=== PATIENT | female | born 1940 | race Caucasian/White ===

== ENCOUNTER 2017-05-14 20:40 | Emergency (ER) | payer MEDICARE ==
[~2017-05-14] VITALS: Ht 149.9 cm; Wt 72.0 kg
[~2017-05-14 20:40] MED LIST: ASPI-1182 PO; METO25 PO; NITR.3 SL; SIMV-260 PO; VITAD5000 PO
[2017-05-14] MEDS ORDERED: AMLO-511 PO (21:01)
[2017-05-14] MEDS ORDERED: ASPI81 PO (21:01)
[2017-05-14 21:29] LABS: APPEARANCE,URINE CLEAR (CLEAR); GLUCOSE, URINE (UA) NEGATIVE (NEGATIVE); KETONES,URINE NEGATIVE (NEGATIVE); LEUKOCYTE ESTERASE ,URINE NEGATIVE (NEGATIVE); OCCULT BLOOD,URINE TRACE (NEGATIVE); PROTEIN,URINE NEGATIVE (NEGATIVE)
[2017-05-14 21:31] LABS: ADD UA MICROSCOPIC YES
[2017-05-14 21:59] LABS: ANION GAP 5 mmol/L (8-16); CALCIUM, TOTAL 9.3 mg/dL (8.8-10.5); CARBON DIOXIDE 29 mmol/L (22-29); CHLORIDE 106 mmol/L (98-107); CREATININE 0.75 mg/dL (0.60-1.30); GLOMERULAR FILTR. RATE CALC > 60 mL/min (>60); POTASSIUM 4.1 mmol/L (3.5-5.1); SODIUM SERUM 140 mmol/L (136-145); UREA NITROGEN, BLOOD 19 mg/dL (7-18)
[2017-05-14 22:00] LABS: BASOPHILS # (AUTO) 0.03 K/uL (0.00-0.20); BASOPHILS % (AUTO) 0.5 % (0.0-2.0); EOSINOPHILS # (AUTO) 0.06 K/uL (0.00-0.70); EOSINOPHILS % (AUTO) 1.15 % (1.0-6.0); HEMATOCRIT 38.6 % (36-46); HEMOGLOBIN 13.1 g/dL (12.0-16.0); LYMPHOCYTES # (AUTO) 1.9 K/uL (1.0-4.8); LYMPHOCYTES % (AUTO) 34.7 % (22.0-44.0); MEAN CORPUSCULAR HEMOGLOBIN 30.5 pg (26.0-34.0); MEAN CORPUSCULAR VOLUME 90 fL (80-100); MONOCYTES # (AUTO) 0.6 K/uL (0.1-1.0); MONOCYTES % (AUTO) 10.9 % (2.0-9.0); NEUTROPHILS % (AUTO) 52.7 % (40.0-70.0); PLATELET COUNT (AUTO) 211 K/uL (150-450); RED BLOOD CELL COUNT(AUTO) 4.31 MIL/uL (4.00-5.20); RED CELL DISTRIBUTION WIDTH 13.9 % (11.5-14.5); WHITE BLOOD COUNT (AUTO) 5.6 K/uL (4.5-11.0)
[2017-05-14 22:05] LABS: ALANINE AMINOTRANSFERASE 49 U/L (12-78); ALBUMIN 3.5 g/dL (3.4-5.0); ASPARTATE AMINOTRANSFERASE 36 U/L (15-37); BILIRUBIN,TOTAL 0.4 mg/dL (0.1-1.0); TOTAL PROTEIN, SERUM 7.3 g/dL (6.4-8.2)
[2017-05-14 22:17] LABS: SQUAMOUS EPITHELIAL CELL,UR Few /LPF (None Seen)
[2017-05-14 22:19] LABS: WBC,URINE 0-2 /HPF (0-5)
[2017-05-14 23:57] VITALS: BP 127/82
== END 2017-05-15 00:16 | disposition home or self-care (01) ==
LOC: EMS 20:43
DX: R10.12 Left upper quadrant pain (principal); E66.9 Obesity, unspecified; I10 Essential (primary) hypertension; Z68.32 Body mass index [BMI] 32.0-32.9, adult; Z79.82 Long term (current) use of aspirin
CPT/HCPCS: 74176; 99285

== ENCOUNTER 2017-08-11 10:05 | Emergency (ER) | payer MEDICARE ==
[~2017-08-11] VITALS: Ht 157.5 cm; Wt 78.6 kg
[~2017-08-11 10:05] MED LIST changes: +AMLO-511 PO; +ASPI81 PO
[2017-08-11] MEDS ORDERED: ATEN25TA PO (10:30)
[2017-08-11] MEDS ORDERED: SIMV-260 PO (10:30)
[2017-08-11] MEDS ORDERED: ONDANSETRON HCL 4 MG/2 ML VIAL IVP ONE (11:00)
[2017-08-11] MEDS ORDERED: SODIUM CHLORIDE 0.9% 1,000 ML IV ONE (11:00)
[2017-08-11 11:03] LABS: EOSINOPHILS % (AUTO) 0.1 % (1.0-6.0); HEMATOCRIT 42.8 % (36-46); HEMOGLOBIN 14.3 g/dL (12.0-16.0); LYMPHOCYTES # (AUTO) 0.8 K/uL (1.0-4.8); LYMPHOCYTES % (AUTO) 7.1 % (22.0-44.0); MEAN CORPUSCULAR HEMOGLOBIN 30.3 pg (26.0-34.0); MEAN CORPUSCULAR HGB CONC 33.5 G/dL (31.0-37.0); MEAN CORPUSCULAR VOLUME 90 fL (80-100); MONOCYTES # (AUTO) 0.4 K/uL (0.1-1.0); MONOCYTES % (AUTO) 3.8 % (2.0-9.0); NEUTROPHILS # (AUTO) 10.3 K/uL (1.8-7.7); PLATELET COUNT (AUTO) 220 K/uL (150-450); RED BLOOD CELL COUNT(AUTO) 4.74 MIL/uL (4.00-5.20); RED CELL DISTRIBUTION WIDTH 13.6 % (11.5-14.5); WHITE BLOOD COUNT (AUTO) 11.6 K/uL (4.5-11.0)
[2017-08-11 11:14] LABS: ANION GAP 3 mmol/L (8-16); CARBON DIOXIDE 29 mmol/L (22-29); CHLORIDE 103 mmol/L (98-107); GLOMERULAR FILTR. RATE CALC > 60 mL/min (>60); POTASSIUM 3.8 mmol/L (3.5-5.1); SODIUM SERUM 135 mmol/L (136-145); UREA NITROGEN, BLOOD 17 mg/dL (7-18)
[2017-08-11 11:20] LABS: ALANINE AMINOTRANSFERASE 36 U/L (12-78); ALBUMIN 3.6 g/dL (3.4-5.0); ASPARTATE AMINOTRANSFERASE 23 U/L (15-37); BILIRUBIN,TOTAL 0.6 mg/dL (0.1-1.0); TOTAL PROTEIN, SERUM 7.5 g/dL (6.4-8.2)
[2017-08-11] MEDS ORDERED: KETOROLAC TROMETHAMINE 30 MG/ML VIAL IVP ONE (11:45)
[2017-08-11 12:00] LABS: INFLUENZA TYPE B NEGATIVE FOR TYPE B (NEGATIVE)
[2017-08-11] MEDS ORDERED: MAG HYDROX/AL HYDROX/SIMETH ES 30 ML SUSPENSION UDCUP PO ONE (12:45)
[2017-08-11 12:54] LABS: APPEARANCE,URINE CLEAR (CLEAR); GLUCOSE, URINE (UA) NEGATIVE (NEGATIVE); KETONES,URINE NEGATIVE (NEGATIVE); LEUKOCYTE ESTERASE ,URINE NEGATIVE (NEGATIVE); OCCULT BLOOD,URINE TRACE (NEGATIVE); PH,URINE 6.5 (5.0-8.0); PROTEIN,URINE NEGATIVE (NEGATIVE)
[2017-08-11 13:31] LABS: RBC,URINE 0-2 /HPF (0-2); WBC,URINE None Seen /HPF (0-5)
[2017-08-11 13:37] VITALS: BP 137/60
== END 2017-08-11 14:21 | disposition home or self-care (01) ==
LOC: EMS 10:08
DX: R11.2 Nausea with vomiting, unspecified (principal); R19.7 Diarrhea, unspecified; I10 Essential (primary) hypertension
CPT/HCPCS: 36415; 76705; 80053; 81001; 85025; 87804; 96374; 96375; 99285; J1885; J2405; J7030

== ENCOUNTER 2018-11-07 20:08 | Emergency (ER) | payer MEDICARE ==
[~2018-11-07] VITALS: Ht 154.9 cm; Wt 77.7 kg
[~2018-11-07 20:08] MED LIST changes: -ASPI81 PO; +ATEN25TA PO; -METO25 PO; -VITAD5000 PO
[2018-11-07] MEDS ORDERED: ATEN25TA PO (20:40)
[2018-11-07] MEDS ORDERED: ISOS30TA6 PO (20:40)
[2018-11-07] MEDS ORDERED: LOSA25TA41 PO (20:40)
[2018-11-07] MEDS ORDERED: ALLO100T PO (20:40)
[2018-11-07] MEDS ORDERED: VITAD1000 PO (20:40)
[2018-11-07] MEDS ORDERED: NITR.4 SL (20:40)
[2018-11-07] MEDS ORDERED: ATOR40TA28 PO (20:40)
[2018-11-07 21:33] LABS: BASOPHILS % (AUTO) 0.7 % (0.0-2.0); EOSINOPHILS % (AUTO) 0.9 % (1.0-6.0); HEMATOCRIT 39.6 % (36-46); HEMOGLOBIN 13.2 g/dL (12.0-16.0); LYMPHOCYTES # (AUTO) 1.7 K/uL (1.0-4.8); LYMPHOCYTES % (AUTO) 28.9 % (22.0-44.0); MEAN CORPUSCULAR HEMOGLOBIN 29.5 pg (26.0-34.0); MEAN CORPUSCULAR HGB CONC 33.4 G/dL (31.0-37.0); MEAN CORPUSCULAR VOLUME 88 fL (80-100); MONOCYTES # (AUTO) 0.6 K/uL (0.1-1.0); MONOCYTES % (AUTO) 11.2 % (2.0-9.0); NEUTROPHILS # (AUTO) 3.3 K/uL (1.8-7.7); NEUTROPHILS % (AUTO) 58.3 % (40.0-70.0); PLATELET COUNT (AUTO) 248 K/uL (150-450); RED BLOOD CELL COUNT(AUTO) 4.48 MIL/uL (4.00-5.20); RED CELL DISTRIBUTION WIDTH 13.4 % (11.5-14.5)
[2018-11-07 21:43] LABS: CALCIUM, TOTAL 9.5 mg/dL (8.8-10.5); CREATININE 1.02 mg/dL (0.60-1.30)
[2018-11-07] MEDS ORDERED: SODIUM CHLORIDE 0.9% 1,000 ML IV ONE (21:45)
[2018-11-07 21:49] LABS: ALBUMIN 2.9 g/dL (3.4-5.0); BILIRUBIN,TOTAL 0.4 mg/dL (0.1-1.0); TOTAL PROTEIN, SERUM 7.2 g/dL (6.4-8.2)
[2018-11-07 21:51] LABS: LACTIC ACID 0.8 mmol/L (0.4-2.0)
[2018-11-07 22:42] LABS: INFLUENZA TYPE A POSITIVE FOR TYPE A (NEGATIVE); INFLUENZA TYPE B NEGATIVE FOR TYPE B (NEGATIVE)
[2018-11-07] MEDS ORDERED: OSELTAMIVIR PHOSPHATE 75 MG CAPSULE PO ONE (23:00)
[2018-11-07 23:40] LABS: APPEARANCE,URINE TURBID (CLEAR); BILIRUBIN,URINE NEGATIVE (NEGATIVE); GLUCOSE, URINE (UA) NEGATIVE (NEGATIVE); KETONES,URINE NEGATIVE (NEGATIVE); LEUKOCYTE ESTERASE ,URINE LARGE (NEGATIVE); NITRATE,URINE POSITIVE (NEGATIVE); OCCULT BLOOD,URINE SMALL (NEGATIVE); PH,URINE 5.5 (5.0-8.0); PROTEIN,URINE NEGATIVE (NEGATIVE); UROBILINOGEN,URINE 0.2 mg/dL (<=1.0)
[2018-11-07 23:46] LABS: RBC,URINE 0-2 /HPF (0-2); WBC,URINE >100 /HPF (0-5)
[2018-11-07 23:47] LABS: BACTERIA,URINE Moderate /HPF (None Seen); SQUAMOUS EPITHELIAL CELL,UR Rare /LPF (None Seen)
[2018-11-08] MEDS ORDERED: CefTRIAXone 1 GM/DEXTROSE 50 ML IV ONE
[2018-11-08 00:02] VITALS: BP 115/68
== END 2018-11-08 00:10 | disposition home or self-care (01) ==
LOC: EMS 20:09
DX: J10.1 Influenza due to other identified influenza virus with other respiratory manifestations (principal); N39.0 Urinary tract infection, site not specified; I25.10 Atherosclerotic heart disease of native coronary artery without angina pectoris; I11.9 Hypertensive heart disease without heart failure; E78.00 Pure hypercholesterolemia, unspecified; Z79.899 Other long term (current) drug therapy; Z79.01 Long term (current) use of anticoagulants
CPT/HCPCS: 36415; 71045; 80053; 81001; 82550; 83605; 83880; 84484; 85025; 85610; 85730; 87040; 87077; 87086; 87804; 93005; 96365; 99285; J0696; J7030

== ENCOUNTER 2019-06-22 14:01 | Inpatient (IN) | payer MEDICARE ==
[~2019-06-22] VITALS: Ht 160 cm; Wt 76.9 kg
[~2019-06-22 14:01] MED LIST changes: +ALLO100T PO; -AMLO-511 PO; +ATOR40TA28 PO; +CHOL100018 PO; +ISOS30TA6 PO; +LOSA25TA41 PO; -NITR.3 SL; +NITR0.4T52 SL; -SIMV-260 PO
[2019-06-22] MEDS ORDERED: METF-960 PO (14:19)
[2019-06-22] MEDS ORDERED: METH500T7 PO (14:19)
[2019-06-22] MEDS ORDERED: LEVO25TA9 PO (14:19)
[2019-06-22] MEDS ORDERED: SODIUM CHLORIDE 0.9% 1,000 ML IV ONE ×2 (14:30→17:15)
[2019-06-22 14:46] LABS: BASOPHILS % (AUTO) 0.2 % (0.0-2.0); EOSINOPHILS % (AUTO) 0.2 % (1.0-6.0); HEMATOCRIT 40.1 % (36-46); HEMOGLOBIN 13.2 g/dL (12.0-16.0); LYMPHOCYTES # (AUTO) 3.2 K/uL (1.0-4.8); LYMPHOCYTES % (AUTO) 25.9 % (22.0-44.0); MEAN CORPUSCULAR HEMOGLOBIN 30.4 pg (26.0-34.0); MEAN CORPUSCULAR HGB CONC 32.9 G/dL (31.0-37.0); MEAN CORPUSCULAR VOLUME 92 fL (80-100); MONOCYTES # (AUTO) 0.8 K/uL (0.1-1.0); MONOCYTES % (AUTO) 6.4 % (2.0-9.0); NEUTROPHILS # (AUTO) 8.4 K/uL (1.8-7.7); NEUTROPHILS % (AUTO) 67.3 % (40.0-70.0); PLATELET COUNT (AUTO) 303 K/uL (150-450); RED BLOOD CELL COUNT(AUTO) 4.34 MIL/uL (4.00-5.20); RED CELL DISTRIBUTION WIDTH 14.1 % (11.5-14.5)
[2019-06-22 14:59] LABS: GLUCOSE,POINT OF CARE 134 MG/DL (70-110)
[2019-06-22 15:09] LABS: CALCIUM, TOTAL 9.3 mg/dL (8.8-10.5); CREATININE 1.08 mg/dL (0.60-1.30); POTASSIUM 4.4 mmol/L (3.5-5.1)
[2019-06-22 15:15] LABS: ALBUMIN 2.9 g/dL (3.4-5.0); BILIRUBIN,TOTAL 0.4 mg/dL (0.1-1.0); TOTAL PROTEIN, SERUM 6.7 g/dL (6.4-8.2)
[2019-06-22] MEDS ORDERED: SODIUM CHLORIDE 0.9% 100 ML ONE (15:34)
[2019-06-22] MEDS ORDERED: IOVERSOL 350 MG/ML 150 ML VIAL ONE (15:34)
[2019-06-22] MEDS ORDERED: MAGNESIUM HYDROXIDE SUSPENSION 30 ML UDCUP PO PRN (17:15)
[2019-06-22] MEDS ORDERED: DEXTROSE 50%-WATER 25 GM/50 ML SYRINGE IVP PRN (17:15)
[2019-06-22] MEDS ORDERED: INSULIN LISPRO 100 UNITS/ML SQ PRN (17:15)
[2019-06-22] MEDS ORDERED: ACETAMINOPHEN 325 MG TABLET PO PRN (17:15)
[2019-06-22] MEDS: DOCUSATE SODIUM 100 MG CAPSULE PO SCH ×2 (21:00→21:27)
[2019-06-22] MEDS: DiphenhydrAMINE HCL 50 MG/ML VIAL IVP PRN (22:24)
[2019-06-22 22:30] VITALS: BP 115/50
[2019-06-22] MEDS: HEPARIN SODIUM,PORCINE 5,000 UNITS/ML VIAL SQ SCH (23:43)
[2019-06-23 04:54] VITALS: BP 139/63
[2019-06-23 06:08] LABS: BASOPHILS % (AUTO) 0.5 % (0.0-2.0); EOSINOPHILS % (AUTO) 0.6 % (1.0-6.0); HEMATOCRIT 39.1 % (36-46); LYMPHOCYTES # (AUTO) 1.8 K/uL (1.0-4.8); LYMPHOCYTES % (AUTO) 27.2 % (22.0-44.0); MEAN CORPUSCULAR HEMOGLOBIN 30.6 pg (26.0-34.0); MEAN CORPUSCULAR HGB CONC 33.3 G/dL (31.0-37.0); MEAN CORPUSCULAR VOLUME 92 fL (80-100); MONOCYTES # (AUTO) 0.5 K/uL (0.1-1.0); MONOCYTES % (AUTO) 6.7 % (2.0-9.0); NEUTROPHILS # (AUTO) 4.4 K/uL (1.8-7.7); PLATELET COUNT (AUTO) 257 K/uL (150-450); RED BLOOD CELL COUNT(AUTO) 4.26 MIL/uL (4.00-5.20); RED CELL DISTRIBUTION WIDTH 13.8 % (11.5-14.5)
[2019-06-23] MEDS: DiphenhydrAMINE HCL 50 MG/ML VIAL IVP PRN (06:38)
[2019-06-23 07:38] LABS: GLUCOMETER DEV NAME(LOC) 5S.1; GLUCOSE,POINT OF CARE 101 MG/DL (70-110)
[2019-06-23 07:44] VITALS: BP 122/58
[2019-06-23] MEDS: FAMOTIDINE 20 MG TABLET PO SCH (08:38)
[2019-06-23] MEDS: DOCUSATE SODIUM 100 MG CAPSULE PO SCH ×2 (08:38→20:58)
[2019-06-23] MEDS: HEPARIN SODIUM,PORCINE 5,000 UNITS/ML VIAL SQ SCH ×2 (08:38→15:46)
[2019-06-23] MEDS: MethylPREDNISolone SOD SUCC 125 MG/2 ML VIAL IVP SCH ×2 (08:38→15:46)
[2019-06-23 11:15] VITALS: BP 101/47
[2019-06-23 15:24] VITALS: BP 115/60
[2019-06-23 20:08] VITALS: BP 137/65
[2019-06-24] MEDS: MethylPREDNISolone SOD SUCC 125 MG/2 ML VIAL IVP SCH ×2 (00:01→08:58)
[2019-06-24] MEDS: HEPARIN SODIUM,PORCINE 5,000 UNITS/ML VIAL SQ SCH ×2 (00:01→08:59)
[2019-06-24 00:05] VITALS: BP 131/60
[2019-06-24 04:10] VITALS: BP 143/75
[2019-06-24 07:08] VITALS: BP 124/54
[2019-06-24] MEDS: DOCUSATE SODIUM 100 MG CAPSULE PO SCH (08:57)
[2019-06-24] MEDS: FAMOTIDINE 20 MG TABLET PO SCH (08:59)
[2019-06-24 11:05] VITALS: BP 117/68
[2019-06-24 13:38] LABS: GLUCOMETER DEV NAME(LOC) 5N.2; GLUCOSE,POINT OF CARE 159 MG/DL (70-110)
[2019-06-24 13:48] LABS: GLUCOMETER DEV NAME(LOC) 5N.2; GLUCOSE,POINT OF CARE 209 MG/DL (70-110)
[2019-06-24 19:39] LABS: GLUCOMETER DEV NAME(LOC) 5S.1; GLUCOSE,POINT OF CARE 220 MG/DL (70-110)
[2019-06-24 19:39] LABS: GLUCOMETER DEV NAME(LOC) 5S.1; GLUCOSE,POINT OF CARE 162 MG/DL (70-110)
== END 2019-06-24 12:00 | disposition home or self-care (01) | DRG 918 ==
LOC: EMS 14:02 → 5N 18:46
PROVIDERS: ADMIT Internal Medicine; ATTEND Internal Medicine
DX: T50.991A Poisoning by other drugs, medicaments and biological substances, accidental (unintentional), initial encounter (principal); E11.9 Type 2 diabetes mellitus without complications; I95.2 Hypotension due to drugs; I25.10 Atherosclerotic heart disease of native coronary artery without angina pectoris; E66.9 Obesity, unspecified; L50.9 Urticaria, unspecified; R21 Rash and other nonspecific skin eruption; E78.00 Pure hypercholesterolemia, unspecified; I10 Essential (primary) hypertension; R09.02 Hypoxemia; M10.9 Gout, unspecified; Z68.30 Body mass index [BMI] 30.0-30.9, adult; Z79.899 Other long term (current) drug therapy; Z79.82 Long term (current) use of aspirin; Z98.49 Cataract extraction status, unspecified eye; Y92.89 Other specified places as the place of occurrence of the external cause
CPT/HCPCS: 71275; 74177; 87081; 93005; 93306; 99291; J1200; J1644; J2930; J7030; J7050

== ENCOUNTER 2020-09-19 12:21 | Emergency (ER) | payer MEDICARE ==
[~2020-09-19] VITALS: Ht 147.3 cm; Wt 70.5 kg
[~2020-09-19 12:21] MED LIST changes: -ALLO100T PO; +ASPI-1111 PO; -ASPI-1182 PO; -ATEN25TA PO; -ISOS30TA6 PO; +LEVO25TA9 PO; -LOSA25TA41 PO; +METF-960 PO; -NITR0.4T52 SL
[2020-09-19] MEDS ORDERED: CHOL100018 PO (13:10)
[2020-09-19] MEDS ORDERED: IBUPROFEN 400 MG TABLET PO ONE (13:15)
[2020-09-19 14:34] VITALS: BP 131/68
== END 2020-09-19 14:53 | disposition home or self-care (01) ==
LOC: EMS 12:23
DX: S20.211A Contusion of right front wall of thorax, initial encounter (principal); I25.10 Atherosclerotic heart disease of native coronary artery without angina pectoris; E78.00 Pure hypercholesterolemia, unspecified; I10 Essential (primary) hypertension; Z79.84 Long term (current) use of oral hypoglycemic drugs; Z79.82 Long term (current) use of aspirin; V43.52XA Car driver injured in collision with other type car in traffic accident, initial encounter; Y93.89 Activity, other specified; Y92.89 Other specified places as the place of occurrence of the external cause; Y99.8 Other external cause status
CPT/HCPCS: 93005; 99283; 71046; 71046-TC

== ENCOUNTER 2020-10-04 09:14 | Emergency (ER) | payer MEDICARE ==
[~2020-10-04] VITALS: Ht 154.9 cm; Wt 45.5 kg
[2020-10-04] MEDS ORDERED: HYDROCODONE/ACETAMINOPHEN 5-325 MG TABLET PO ONE (10:46)
[2020-10-04 11:00] LABS: BASOPHILS % (AUTO) 0.5 % (0.0-2.0); EOSINOPHILS % (AUTO) 1.2 % (1.0-6.0); HEMATOCRIT 39.3 % (36-46); LYMPHOCYTES # (AUTO) 1.7 K/uL (1.0-4.8); LYMPHOCYTES % (AUTO) 26.8 % (22.0-44.0); MEAN CORPUSCULAR HEMOGLOBIN 30.4 pg (26.0-34.0); MEAN CORPUSCULAR HGB CONC 33.1 G/dL (31.0-37.0); MEAN CORPUSCULAR VOLUME 92 fL (80-100); MONOCYTES # (AUTO) 0.5 K/uL (0.1-1.0); MONOCYTES % (AUTO) 7.9 % (2.0-9.0); NEUTROPHILS # (AUTO) 4.1 K/uL (1.8-7.7); NEUTROPHILS % (AUTO) 63.6 % (40.0-70.0); PLATELET COUNT (AUTO) 241 K/uL (150-450); RED BLOOD CELL COUNT(AUTO) 4.28 MIL/uL (4.00-5.20); RED CELL DISTRIBUTION WIDTH 13.8 % (11.5-14.5)
[2020-10-04 11:21] LABS: ALANINE AMINOTRANSFERASE 23 U/L (12-78); ALBUMIN 3.4 g/dL (3.4-5.0); ALKALINE PHOSPHATASE 81 U/L (46-116); ANION GAP 6 mmol/L (8-16); ASPARTATE AMINOTRANSFERASE 16 U/L (15-37); BILIRUBIN,TOTAL 0.3 mg/dL (0.1-1.0); CALCIUM, TOTAL 9.8 mg/dL (8.8-10.5); CARBON DIOXIDE 30 mmol/L (22-29); CHLORIDE 105 mmol/L (98-107); CREATININE 0.68 mg/dL (0.60-1.30); GLOMERULAR FILTR. RATE CALC > 60 mL/min (>60); GLUCOSE,RANDOM 70 mg/dL (70-110); LIPASE 90 U/L (73-393); POTASSIUM 4.1 mmol/L (3.5-5.1); SODIUM SERUM 141 mmol/L (136-145); TOTAL PROTEIN, SERUM 7.4 g/dL (6.4-8.2); UREA NITROGEN, BLOOD 17 mg/dL (7-18)
[2020-10-04 11:24] LABS: LACTIC ACID 1.3 mmol/L (0.4-2.0)
[2020-10-04] MEDS ORDERED: SODIUM CHLORIDE 0.9% 1,000 ML IV ONE (12:00)
[2020-10-04] MEDS ORDERED: IOVERSOL 350 MG/ML 100 ML VIAL ONE (12:00)
[2020-10-04] MEDS ORDERED: SODIUM CHLORIDE 0.9% 100 ML ONE (12:00)
[2020-10-04 14:08] VITALS: BP 139/65
== END 2020-10-04 14:37 | disposition home or self-care (01) ==
LOC: EMS 09:25
DX: S20.211A Contusion of right front wall of thorax, initial encounter (principal); I25.10 Atherosclerotic heart disease of native coronary artery without angina pectoris; E78.00 Pure hypercholesterolemia, unspecified; I10 Essential (primary) hypertension; Z79.84 Long term (current) use of oral hypoglycemic drugs; Z79.82 Long term (current) use of aspirin; V49.9XXA Car occupant (driver) (passenger) injured in unspecified traffic accident, initial encounter; Y93.89 Activity, other specified; Y92.89 Other specified places as the place of occurrence of the external cause; Y99.8 Other external cause status
CPT/HCPCS: 36415; 71101; 71275; 80053; 83605; 83690; 84484; 85025; 93005; 96360; 99285; J7030; J7050; Q9967

== ENCOUNTER 2020-12-16 12:43 | Emergency (ER) | payer MEDICARE ==
[~2020-12-16] VITALS: Ht 157.5 cm; Wt 70.5 kg
[~2020-12-16 12:43] MED LIST changes: -ASPI-1111 PO; +ASPI-1444 PO; -CHOL100018 PO; +CHOL100044 PO
[2020-12-16] MEDS ORDERED: LIDOCAINE 5% TRANSDERMAL PATCH TD ONE (13:30)
[2020-12-16] MEDS ORDERED: ACETAMINOPHEN 500 MG TABLET PO ONE (13:30)
[2020-12-16 14:10] LABS: BASOPHILS % (AUTO) 0.5 % (0.0-2.0); EOSINOPHILS % (AUTO) 0.8 % (1.0-6.0); HEMATOCRIT 41.9 % (36-46); HEMOGLOBIN 13.7 g/dL (12.0-16.0); LYMPHOCYTES # (AUTO) 1.6 K/uL (1.0-4.8); LYMPHOCYTES % (AUTO) 29.4 % (22.0-44.0); MEAN CORPUSCULAR HEMOGLOBIN 29.9 pg (26.0-34.0); MEAN CORPUSCULAR HGB CONC 32.8 G/dL (31.0-37.0); MEAN CORPUSCULAR VOLUME 91 fL (80-100); MONOCYTES # (AUTO) 0.4 K/uL (0.1-1.0); NEUTROPHILS # (AUTO) 3.4 K/uL (1.8-7.7); NEUTROPHILS % (AUTO) 61.3 % (40.0-70.0); PLATELET COUNT (AUTO) 227 K/uL (150-450); RED BLOOD CELL COUNT(AUTO) 4.59 MIL/uL (4.00-5.20)
[2020-12-16 14:24] LABS: ANION GAP 8 mmol/L (8-16); CALCIUM, TOTAL 9.6 mg/dL (8.8-10.5); CARBON DIOXIDE 30 mmol/L (22-29); CHLORIDE 103 mmol/L (98-107); CREATININE 0.73 mg/dL (0.60-1.30); GLUCOSE,RANDOM 116 mg/dL (70-110); POTASSIUM 3.9 mmol/L (3.5-5.1); SODIUM SERUM 141 mmol/L (136-145); UREA NITROGEN, BLOOD 22 mg/dL (7-18)
[2020-12-16 14:25] LABS: GLOMERULAR FILTR. RATE CALC > 60 mL/min (>60)
[2020-12-16 14:39] LABS: B-TYPE NATRIURETIC PEPTIDE 76 pg/mL (0-100)
[2020-12-16 14:43] LABS: COVID AG,FIA SOURCE NASOPHARYNGEAL
[2020-12-16 14:49] LABS: ALANINE AMINOTRANSFERASE 21 U/L (12-78); ALBUMIN 3.9 g/dL (3.4-5.0); ALKALINE PHOSPHATASE 85 U/L (46-116); ASPARTATE AMINOTRANSFERASE 15 U/L (15-37); BILIRUBIN,TOTAL 0.4 mg/dL (0.1-1.0); CREATINE KINASE, TOTAL ONLY 88 U/L (26-192); TOTAL PROTEIN, SERUM 7.6 g/dL (6.4-8.2)
[2020-12-16 16:10] LABS: APPEARANCE,URINE CLEAR (CLEAR); BILIRUBIN,URINE NEGATIVE (NEGATIVE); GLUCOSE, URINE (UA) NEGATIVE (NEGATIVE); KETONES,URINE NEGATIVE (NEGATIVE); LEUKOCYTE ESTERASE ,URINE NEGATIVE (NEGATIVE); NITRATE,URINE NEGATIVE (NEGATIVE); OCCULT BLOOD,URINE NEGATIVE (NEGATIVE); PH,URINE 6.5 (5.0-8.0); PROTEIN,URINE NEGATIVE (NEGATIVE); UROBILINOGEN,URINE 0.2 mg/dL (<=1.0)
[2020-12-16 17:30] VITALS: BP 127/85
== END 2020-12-16 18:22 | disposition home or self-care (01) ==
LOC: EMS 12:51
DX: S20.211A Contusion of right front wall of thorax, initial encounter (principal); I25.10 Atherosclerotic heart disease of native coronary artery without angina pectoris; E78.00 Pure hypercholesterolemia, unspecified; I10 Essential (primary) hypertension; Z20.822 Contact with and (suspected) exposure to COVID-19; Z79.84 Long term (current) use of oral hypoglycemic drugs; Z79.82 Long term (current) use of aspirin; X58.XXXA Exposure to other specified factors, initial encounter; Y93.89 Activity, other specified; Y92.89 Other specified places as the place of occurrence of the external cause; Y99.8 Other external cause status
CPT/HCPCS: 36415; 71045; 74176; 80053; 81003; 82550; 83880; 84484; 85025; 87426; 93005; 99285; C9803; 99283

== ENCOUNTER 2022-01-09 11:13 | Inpatient (IN) | payer MEDICARE ==
[~2022-01-09] VITALS: Ht 152.4 cm; Wt 70.2 kg
[~2022-01-09 11:13] MED LIST changes: -CHOL100044 PO; +CHOL25TA4 PO; +METF-1211 PO; -METF-960 PO
[2022-01-09] MEDS ORDERED: ASPIRIN 81 MG CHEWABLE TABLET PO ONE (12:15)
[2022-01-09 12:54] LABS: BASOPHILS % (AUTO) 0.5 % (0.0-2.0); EOSINOPHILS % (AUTO) 0.9 % (1.0-6.0); HEMATOCRIT 42.3 % (36-46); HEMOGLOBIN 14.3 g/dL (12.0-16.0); LYMPHOCYTES # (AUTO) 1.4 K/uL (1.0-4.8); LYMPHOCYTES % (AUTO) 27.6 % (22.0-44.0); MEAN CORPUSCULAR HEMOGLOBIN 29.9 pg (26.0-34.0); MEAN CORPUSCULAR HGB CONC 33.7 G/dL (31.0-37.0); MEAN CORPUSCULAR VOLUME 89 fL (80-100); MONOCYTES # (AUTO) 0.4 K/uL (0.1-1.0); NEUTROPHILS # (AUTO) 3.1 K/uL (1.8-7.7); PLATELET COUNT (AUTO) 228 K/uL (150-450); RED BLOOD CELL COUNT(AUTO) 4.78 MIL/uL (4.00-5.20); RED CELL DISTRIBUTION WIDTH 13.6 % (11.5-14.5)
[2022-01-09 12:59] LABS: ANION GAP 7 mmol/L (8-16); CARBON DIOXIDE 30 mmol/L (22-29); CHLORIDE 104 mmol/L (98-107); CREATININE 0.69 mg/dL (0.60-1.30); GLOMERULAR FILTR. RATE CALC > 60 mL/min (>60); GLUCOSE,RANDOM 125 mg/dL (70-110); POTASSIUM 4.2 mmol/L (3.5-5.1); SODIUM SERUM 141 mmol/L (136-145); UREA NITROGEN, BLOOD 17 mg/dL (7-18)
[2022-01-09 13:06] LABS: ALANINE AMINOTRANSFERASE 20 U/L (12-78); ALBUMIN 3.6 g/dL (3.4-5.0); ALKALINE PHOSPHATASE 100 U/L (46-116); ASPARTATE AMINOTRANSFERASE 18 U/L (15-37); BILIRUBIN,TOTAL 0.4 mg/dL (0.1-1.0); CREATINE KINASE, TOTAL ONLY 47 U/L (26-192); LIPASE 46 U/L (73-393); TOTAL PROTEIN, SERUM 7.6 g/dL (6.4-8.2)
[2022-01-09 13:15] LABS: B-TYPE NATRIURETIC PEPTIDE 54 pg/mL (0-100)
[2022-01-09 13:20] LABS: COVID AG,FIA SOURCE NASAL SWAB
[2022-01-09] MEDS ORDERED: ZOLPIDEM TARTRATE 5 MG TABLET PO PRN (14:45)
[2022-01-09] MEDS ORDERED: DEXTROSE 50%-WATER 25 GM/50 ML SYRINGE IVP PRN (14:45)
[2022-01-09] MEDS ORDERED: HYDROCODONE/ACETAMINOPHEN 5-325 MG TABLET PO PRN (14:45)
[2022-01-09] MEDS ORDERED: ONDANSETRON HCL 4 MG/2 ML VIAL IVP PRN (14:45)
[2022-01-09] MEDS ORDERED: BISACODYL 10 MG RECTAL RECTAL SUPPOSITORY PR PRN (14:45)
[2022-01-09] MEDS ORDERED: MAGNESIUM HYDROXIDE SUSPENSION 30 ML UDCUP PO PRN (14:45)
[2022-01-09] MEDS ORDERED: MORPHINE SULFATE 2 MG/ML SYRINGE IVP PRN (14:45)
[2022-01-09] MEDS: HEPARIN SODIUM,PORCINE 5,000 UNITS/ML VIAL SQ SCH ×2 (16:33→23:59)
[2022-01-09 20:47] VITALS: BP 153/80
[2022-01-09] MEDS: CHOLECALCIFEROL (VIT D3) 1,000 UNITS [25 MCG] TABLET PO SCH (20:54)
[2022-01-09] MEDS: ATORVASTATIN CALCIUM 40 MG TABLET PO SCH (20:54)
[2022-01-09] MEDS: DOCUSATE SODIUM 100 MG CAPSULE PO SCH (20:55)
[2022-01-10] VITALS (7 sets, daily range): BP systolic 110–162; BP diastolic 49–78
[2022-01-10] MEDS: LEVOTHYROXINE SODIUM 25 MCG TABLET PO SCH (06:12)
[2022-01-10 06:59] LABS: BASOPHILS % (AUTO) 0.8 % (0.0-2.0); EOSINOPHILS % (AUTO) 1.2 % (1.0-6.0); HEMATOCRIT 40.2 % (36-46); HEMOGLOBIN 13.9 g/dL (12.0-16.0); LYMPHOCYTES # (AUTO) 1.4 K/uL (1.0-4.8); LYMPHOCYTES % (AUTO) 31.7 % (22.0-44.0); MEAN CORPUSCULAR HEMOGLOBIN 30.2 pg (26.0-34.0); MEAN CORPUSCULAR HGB CONC 34.5 G/dL (31.0-37.0); MEAN CORPUSCULAR VOLUME 88 fL (80-100); MONOCYTES # (AUTO) 0.5 K/uL (0.1-1.0); MONOCYTES % (AUTO) 10.3 % (2.0-9.0); NEUTROPHILS # (AUTO) 2.5 K/uL (1.8-7.7); PLATELET COUNT (AUTO) 219 K/uL (150-450); RED BLOOD CELL COUNT(AUTO) 4.59 MIL/uL (4.00-5.20); RED CELL DISTRIBUTION WIDTH 13.6 % (11.5-14.5)
[2022-01-10 07:05] LABS: ANION GAP 7 mmol/L (8-16); CALCIUM, TOTAL 9.3 mg/dL (8.8-10.5); CARBON DIOXIDE 29 mmol/L (22-29); CHLORIDE 105 mmol/L (98-107); CREATININE 0.66 mg/dL (0.60-1.30); GLUCOSE,RANDOM 130 mg/dL (70-110); POTASSIUM 3.9 mmol/L (3.5-5.1); SODIUM SERUM 141 mmol/L (136-145); UREA NITROGEN, BLOOD 15 mg/dL (7-18)
[2022-01-10 07:06] LABS: GLUCOMETER DEV NAME(LOC) 5S.1B; GLUCOSE,POINT OF CARE 151 MG/DL (70-110)
[2022-01-10 07:06] LABS: GLUCOMETER DEV NAME(LOC) 5S.1B; GLUCOSE,POINT OF CARE 119 MG/DL (70-110)
[2022-01-10 07:07] LABS: GLOMERULAR FILTR. RATE CALC > 60 mL/min (>60)
[2022-01-10] MEDS: HEPARIN SODIUM,PORCINE 5,000 UNITS/ML VIAL SQ SCH ×3 (08:45→23:54)
[2022-01-10] MEDS: ASPIRIN 81 MG CHEWABLE TABLET PO SCH (08:48)
[2022-01-10] MEDS: PANTOPRAZOLE SODIUM 40 MG DR TABLET PO SCH (08:49)
[2022-01-10] MEDS: CHOLECALCIFEROL (VIT D3) 1,000 UNITS [25 MCG] TABLET PO SCH ×2 (08:49→21:49)
[2022-01-10] MEDS: DOCUSATE SODIUM 100 MG CAPSULE PO SCH ×2 (08:49→21:49)
[2022-01-10] MEDS ORDERED: ASPIRIN 81 MG DR TABLET PO SCH (09:00)
[2022-01-10] MEDS ORDERED: SESTAMIBI TC99M/UD ISOTOPE 1 EA INJ INJ ONE ×2 (11:15→13:30)
[2022-01-10] MEDS ORDERED: REGADENOSON 0.4 MG/5 ML PF SYRINGE IVP ONE ×2 (11:45→14:00)
[2022-01-10 18:42] LABS: GLUCOMETER DEV NAME(LOC) 5N.1C; GLUCOSE,POINT OF CARE 108 MG/DL (70-110)
[2022-01-10] MEDS: ACETAMINOPHEN 325 MG TABLET PO PRN (21:48)
[2022-01-10] MEDS: ATORVASTATIN CALCIUM 40 MG TABLET PO SCH (21:49)
[2022-01-10 23:26] LABS: GLUCOMETER DEV NAME(LOC) 5S.1B; GLUCOSE,POINT OF CARE 202 MG/DL (70-110)
[2022-01-11 00:22] VITALS: BP 121/50
[2022-01-11 04:28] VITALS: BP 134/60
[2022-01-11] MEDS: LEVOTHYROXINE SODIUM 25 MCG TABLET PO SCH (05:57)
[2022-01-11 06:51] LABS: GLUCOMETER DEV NAME(LOC) 5N.1C; GLUCOSE,POINT OF CARE 146 MG/DL (70-110)
[2022-01-11 07:38] VITALS: BP 133/64
[2022-01-11 07:42] LABS: BASOPHILS % (AUTO) 0.6 % (0.0-2.0); EOSINOPHILS % (AUTO) 1.2 % (1.0-6.0); HEMATOCRIT 41.1 % (36-46); LYMPHOCYTES # (AUTO) 1.5 K/uL (1.0-4.8); LYMPHOCYTES % (AUTO) 32.3 % (22.0-44.0); MEAN CORPUSCULAR VOLUME 88 fL (80-100); MONOCYTES # (AUTO) 0.5 K/uL (0.1-1.0); MONOCYTES % (AUTO) 10.7 % (2.0-9.0); NEUTROPHILS # (AUTO) 2.5 K/uL (1.8-7.7); NEUTROPHILS % (AUTO) 55.2 % (40.0-70.0); PLATELET COUNT (AUTO) 204 K/uL (150-450); RED BLOOD CELL COUNT(AUTO) 4.66 MIL/uL (4.00-5.20); RED CELL DISTRIBUTION WIDTH 13.5 % (11.5-14.5)
[2022-01-11 07:43] LABS: ANION GAP 7 mmol/L (8-16); CALCIUM, TOTAL 9.5 mg/dL (8.8-10.5); CARBON DIOXIDE 28 mmol/L (22-29); CHLORIDE 106 mmol/L (98-107); CREATININE 0.69 mg/dL (0.60-1.30); GLUCOSE,RANDOM 148 mg/dL (70-110); POTASSIUM 4.3 mmol/L (3.5-5.1); SODIUM SERUM 141 mmol/L (136-145); UREA NITROGEN, BLOOD 23 mg/dL (7-18)
[2022-01-11 07:46] LABS: GLOMERULAR FILTR. RATE CALC > 60 mL/min (>60)
[2022-01-11] MEDS: HEPARIN SODIUM,PORCINE 5,000 UNITS/ML VIAL SQ SCH ×2 (08:00→16:00)
[2022-01-11] MEDS: ASPIRIN 81 MG CHEWABLE TABLET PO SCH (09:00)
[2022-01-11] MEDS: PANTOPRAZOLE SODIUM 40 MG DR TABLET PO SCH (09:00)
[2022-01-11] MEDS: CHOLECALCIFEROL (VIT D3) 1,000 UNITS [25 MCG] TABLET PO SCH ×2 (09:00→20:45)
[2022-01-11] MEDS: DOCUSATE SODIUM 100 MG CAPSULE PO SCH ×2 (09:00→20:45)
[2022-01-11 11:11] VITALS: BP 146/75
[2022-01-11] MEDS ORDERED: LIDOCAINE/PF 1% 30 ML VIAL ONE (12:40)
[2022-01-11] MEDS ORDERED: FentaNYL CITRATE PF 100 MCG/2 ML VIAL ONE (12:40)
[2022-01-11] MEDS ORDERED: MIDAZOLAM HCL 2 MG/2 ML VIAL ONE (12:40)
[2022-01-11] MEDS ORDERED: IOHEXOL 300 MG/ML 50 ML VIAL ONE (12:40)
[2022-01-11] MEDS ORDERED: HEPARIN SODIUM 1000 UNITS/NS 1,000 ML ONE (12:41)
[2022-01-11] MEDS ORDERED: IOHEXOL 300 MG/ML 100 ML VIAL ONE (12:41)
[2022-01-11] MEDS ORDERED: IOHEXOL 300 MG/ML 150 ML VIAL ONE (12:41)
[2022-01-11] MEDS ORDERED: IOHEXOL 300 MG/ML 150 ML VIAL ICOR ONE (13:15)
[2022-01-11] MEDS ORDERED: LIDOCAINE 1% 30 ML/SOD BICARB 8.4% 4 ML SQ ONE (13:15)
[2022-01-11] MEDS ORDERED: SODIUM CHLORIDE 0.9% 500 ML IV ONE (13:15)
[2022-01-11] MEDS ORDERED: HEPARIN SODIUM 1000 UNITS/NS 1,000 ML IARTER ONE (13:15)
[2022-01-11] MEDS ORDERED: HEPARIN SODIUM,PORCINE 5,000 UNITS/ML VIAL IVP ONE (13:30)
[2022-01-11] MEDS ORDERED: VERAPAMIL HCL 2.5 MG/ML 2 ML VIAL ICOR ONE (13:30)
[2022-01-11] MEDS ORDERED: NITROGLYCERIN/D5W 50 MG/250 ML IV BOTTLE IARTER ONE (13:30)
[2022-01-11] MEDS ORDERED: FentaNYL CITRATE PF 100 MCG/2 ML VIAL IVP ONE (14:00)
[2022-01-11] MEDS ORDERED: MIDAZOLAM HCL 2 MG/2 ML VIAL IVP ONE (14:00)
[2022-01-11] MEDS ORDERED: IOHEXOL 300 MG/ML 50 ML VIAL IARTER ONE (14:15)
[2022-01-11] MEDS ORDERED: SODIUM CHLORIDE 0.9% 1,000 ML ONE ×2 (18:30→19:21)
[2022-01-11 20:00] VITALS: BP 120/53
[2022-01-11 20:31] LABS: GLUCOMETER DEV NAME(LOC) 5N.1C; GLUCOSE,POINT OF CARE 111 MG/DL (70-110)
[2022-01-11] MEDS: ATORVASTATIN CALCIUM 40 MG TABLET PO SCH (20:45)
[2022-01-11] MEDS: ACETAMINOPHEN 325 MG TABLET PO PRN (20:51)
[2022-01-11 20:56] LABS: GLUCOMETER DEV NAME(LOC) 5S.1B; GLUCOSE,POINT OF CARE 247 MG/DL (70-110)
[2022-01-11 20:56] LABS: GLUCOMETER DEV NAME(LOC) 5S.1B; GLUCOSE,POINT OF CARE 142 MG/DL (70-110)
[2022-01-11] MEDS: INSULIN LISPRO 100 UNITS/ML SQ PRN (21:27)
[2022-01-12] VITALS: BP 105/52
[2022-01-12] MEDS ORDERED: PB/HYOSCY/ATR/SCOP/LIDO/MAALOX 55 ML BOTTLE PO ONE
[2022-01-12] MEDS: HEPARIN SODIUM,PORCINE 5,000 UNITS/ML VIAL SQ SCH ×2 (00:11→09:07)
[2022-01-12 04:00] VITALS: BP 122/60
[2022-01-12] MEDS: LEVOTHYROXINE SODIUM 25 MCG TABLET PO SCH (05:47)
[2022-01-12] MEDS: INSULIN LISPRO 100 UNITS/ML SQ PRN (05:49)
[2022-01-12 08:00] VITALS: BP 134/56
[2022-01-12] MEDS: DOCUSATE SODIUM 100 MG CAPSULE PO SCH (09:00)
[2022-01-12] MEDS: CHOLECALCIFEROL (VIT D3) 1,000 UNITS [25 MCG] TABLET PO SCH (09:07)
[2022-01-12] MEDS: PANTOPRAZOLE SODIUM 40 MG DR TABLET PO SCH (09:07)
[2022-01-12] MEDS: ASPIRIN 81 MG CHEWABLE TABLET PO SCH (09:07)
[2022-01-12 10:00] LABS: BASOPHILS % (AUTO) 0.2 % (0.0-2.0); EOSINOPHILS % (AUTO) 0.2 % (1.0-6.0); HEMATOCRIT 38.2 % (36-46); HEMOGLOBIN 12.8 g/dL (12.0-16.0); LYMPHOCYTES # (AUTO) 1.6 K/uL (1.0-4.8); LYMPHOCYTES % (AUTO) 22.1 % (22.0-44.0); MEAN CORPUSCULAR HEMOGLOBIN 29.7 pg (26.0-34.0); MEAN CORPUSCULAR HGB CONC 33.5 G/dL (31.0-37.0); MEAN CORPUSCULAR VOLUME 89 fL (80-100); MONOCYTES # (AUTO) 0.6 K/uL (0.1-1.0); MONOCYTES % (AUTO) 8.7 % (2.0-9.0); NEUTROPHILS % (AUTO) 68.8 % (40.0-70.0); PLATELET COUNT (AUTO) 220 K/uL (150-450); RED BLOOD CELL COUNT(AUTO) 4.31 MIL/uL (4.00-5.20); RED CELL DISTRIBUTION WIDTH 13.8 % (11.5-14.5)
[2022-01-12 10:14] LABS: ANION GAP 8 mmol/L (8-16); CALCIUM, TOTAL 9.6 mg/dL (8.8-10.5); CARBON DIOXIDE 29 mmol/L (22-29); CHLORIDE 106 mmol/L (98-107); CREATININE 0.82 mg/dL (0.60-1.30); GLUCOSE,RANDOM 104 mg/dL (70-110); POTASSIUM 4.7 mmol/L (3.5-5.1); SODIUM SERUM 143 mmol/L (136-145); UREA NITROGEN, BLOOD 28 mg/dL (7-18)
[2022-01-12 10:15] LABS: GLOMERULAR FILTR. RATE CALC > 60 mL/min (>60)
[2022-01-12 12:00] VITALS: BP 128/66
[2022-01-15 11:12] LABS: GLUCOSE,POINT OF CARE 142 MG/DL (70-110)
[2022-01-15 11:12] LABS: GLUCOSE,POINT OF CARE 192 MG/DL (70-110)
== END 2022-01-12 14:01 | disposition home or self-care (01) | DRG 287 ==
LOC: EMS 11:13 → 5S 17:57 → ICU 01-11 19:00
PROVIDERS: ADMIT Internal Medicine; ATTEND Internal Medicine
PROC: 4A023N7 Measurement of Cardiac Sampling and Pressure, Left Heart, Percutaneous Approach (ICD-10-PCS; principal; 2022-01-11)
PROC: B2111ZZ Fluoroscopy of Multiple Coronary Arteries using Low Osmolar Contrast (ICD-10-PCS; 2022-01-11)
PROC: B2151ZZ Fluoroscopy of Left Heart using Low Osmolar Contrast (ICD-10-PCS; 2022-01-11)
DX: R07.9 Chest pain, unspecified (principal); I10 Essential (primary) hypertension; I25.10 Atherosclerotic heart disease of native coronary artery without angina pectoris; E03.9 Hypothyroidism, unspecified; E11.65 Type 2 diabetes mellitus with hyperglycemia; E78.5 Hyperlipidemia, unspecified; M10.9 Gout, unspecified; E78.00 Pure hypercholesterolemia, unspecified; Z20.822 Contact with and (suspected) exposure to COVID-19; I45.10 Unspecified right bundle-branch block; Z79.82 Long term (current) use of aspirin; Z82.49 Family history of ischemic heart disease and other diseases of the circulatory system; Z87.442 Personal history of urinary calculi; Z79.899 Other long term (current) drug therapy
CPT/HCPCS: 71045; 74018; 78452; 80048; 80053; 82550; 82962; 83605; 83690; 83880; 84484; 85025; 87081; 93005; 93017; 93306; 99285; A9500; G0378; J1644; J2250; J2270; J2785; J3010; J3490; J7030; Q9967; 36415-L1; 36415-TC

== ENCOUNTER 2022-07-28 14:54 | Emergency (ER) | payer MEDICARE ==
[~2022-07-28] VITALS: Ht 157.5 cm; Wt 68.0 kg
[2022-07-28] MEDS ORDERED: PERTUSS(ACELL),DIPH,TET VAC/PF 0.5 ML SYRINGE IM. ONE (16:00)
[2022-07-28] MEDS ORDERED: BACITRACIN 0.9 GM PACKET OINTMENT TP ONE (16:15)
[2022-07-28] MEDS ORDERED: ACETAMINOPHEN/CODEINE 300-30 MG TABLET PO ONE (16:30)
[2022-07-28 16:44] VITALS: BP 136/78
== END 2022-07-28 16:52 | disposition home or self-care (01) ==
LOC: EMS 14:58
DX: T23.122A Burn of first degree of single left finger (nail) except thumb, initial encounter (principal); T23.152A Burn of first degree of left palm, initial encounter; I11.9 Hypertensive heart disease without heart failure; E78.00 Pure hypercholesterolemia, unspecified; Z98.890 Other specified postprocedural states; X19.XXXA Contact with other heat and hot substances, initial encounter; Y93.89 Activity, other specified; Y92.89 Other specified places as the place of occurrence of the external cause; Y99.8 Other external cause status
CPT/HCPCS: 16000; 90471; 90715; 99283

== ENCOUNTER 2023-10-03 14:44 | Emergency (ER) | payer MEDICARE ==
[~2023-10-03] VITALS: Ht 157.5 cm; Wt 68.6 kg
[2023-10-03 14:47] VITALS: TEMP 98.4
[2023-10-03 15:44] LABS: BASOPHILS % (AUTO) 0.8 % (0.0-2.0); EOSINOPHILS % (AUTO) 1.5 % (1.0-6.0); HEMATOCRIT 41.1 % (36-46); HEMOGLOBIN 13.6 g/dL (12.0-16.0); LYMPHOCYTES # (AUTO) 1.7 K/uL (1.0-4.8); LYMPHOCYTES % (AUTO) 23.4 % (22.0-44.0); MEAN CORPUSCULAR HEMOGLOBIN 30.1 pg (26.0-34.0); MEAN CORPUSCULAR HGB CONC 33.2 G/dL (31.0-37.0); MEAN CORPUSCULAR VOLUME 91 fL (80-100); MONOCYTES # (AUTO) 0.5 K/uL (0.1-1.0); MONOCYTES % (AUTO) 7.3 % (2.0-9.0); NEUTROPHILS # (AUTO) 4.9 K/uL (1.8-7.7); PLATELET COUNT (AUTO) 251 K/uL (150-450); RED BLOOD CELL COUNT(AUTO) 4.53 MIL/uL (4.00-5.20); RED CELL DISTRIBUTION WIDTH 13.6 % (11.5-14.5); WHITE BLOOD COUNT (AUTO) 7.3 K/uL (4.5-11.0)
[2023-10-03 15:46] LABS: COVID AG,FIA SOURCE NASAL SWAB
[2023-10-03 15:51] LABS: ANION GAP 9 mmol/L (8-16); CALCIUM, TOTAL 10.2 mg/dL (8.8-10.5); CARBON DIOXIDE 28 mmol/L (22-29); CHLORIDE 105 mmol/L (98-107); CREATININE 0.69 mg/dL (0.60-1.30); GLOMERULAR FILTR. RATE CALC > 60 mL/min (>60); GLUCOSE,RANDOM 109 mg/dL (70-110); POTASSIUM 3.9 mmol/L (3.5-5.1); SODIUM SERUM 142 mmol/L (136-145); UREA NITROGEN, BLOOD 22 mg/dL (7-18)
[2023-10-03 15:56] LABS: ALANINE AMINOTRANSFERASE 22 U/L (12-78); ALBUMIN 3.9 g/dL (3.4-5.0); ALKALINE PHOSPHATASE 88 U/L (46-116); ASPARTATE AMINOTRANSFERASE 20 U/L (15-37); BILIRUBIN,TOTAL 0.4 mg/dL (0.1-1.0); LIPASE 19 U/L (16-77); TOTAL PROTEIN, SERUM 7.4 g/dL (6.4-8.2)
[2023-10-03 15:58] LABS: TROPONIN I-HIGH SENSITIVITY 10 ng/L (<51)
[2023-10-03 15:59] LABS: LACTIC ACID 0.8 mmol/L (0.4-2.0)
[2023-10-03 16:06] LABS: B-TYPE NATRIURETIC PEPTIDE 51 pg/mL (0-100)
[2023-10-03 16:12] LABS: SARS-COV2 (COVID) ANTIGEN,FIA Negative (Negative)
[2023-10-03 17:18] VITALS: BP 141/70; PULSE 64; RESP 17
[2023-10-03] MEDS: MORPHINE SULFATE 2 MG/ML SYRINGE IVP ONE (18:52)
[2023-10-03] MEDS: ONDANSETRON HCL 4 MG/2 ML VIAL IVP ONE (18:52)
[2023-10-03 19:08] LABS: APPEARANCE,URINE CLEAR (CLEAR); BILIRUBIN,URINE NEGATIVE (NEGATIVE); COLOR,URINE COLORLESS (YELLOW); GLUCOSE, URINE (UA) NEGATIVE (NEGATIVE); KETONES,URINE NEGATIVE (NEGATIVE); LEUKOCYTE ESTERASE ,URINE NEGATIVE (NEGATIVE); NITRATE,URINE NEGATIVE (NEGATIVE); OCCULT BLOOD,URINE NEGATIVE (NEGATIVE); PROTEIN,URINE NEGATIVE (NEGATIVE); SPECIFIC GRAVITIY, URINE 1.009 (1.003-1.030); UROBILINOGEN,URINE <=1.0 mg/dL (<=1.0)
[2023-10-03 19:33] LABS: BACTERIA,URINE None Seen /HPF (None Seen); RBC,URINE None Seen /HPF (0-2); SQUAMOUS EPITHELIAL CELL,UR Rare /LPF (None Seen); WBC,URINE None Seen /HPF (0-5)
[2023-10-03] MEDS ORDERED: ACET-2080 PO (20:40)
[2023-10-03] MEDS: ACETAMINOPHEN/CODEINE 300-30 MG TABLET PO ONE (20:59)
== END 2023-10-03 21:08 | disposition home or self-care (01) ==
LOC: EMS 15:08
DX: R10.9 Unspecified abdominal pain (principal); E78.00 Pure hypercholesterolemia, unspecified; I11.9 Hypertensive heart disease without heart failure; Z98.890 Other specified postprocedural states; Z20.822 Contact with and (suspected) exposure to COVID-19
CPT/HCPCS: 71045; 74176; 80053; 81001; 83605; 83690; 83880; 84484; 85025; 87040; 93005; 99285; J2270; J2405; 36415-L1; 36415-TC

== ENCOUNTER 2024-01-28 13:20 | Emergency (ER) | payer MEDICARE ==
[~2024-01-28] VITALS: Ht 149.9 cm; Wt 75.0 kg
[~2024-01-28 13:20] MED LIST changes: +ACET-2080 PO; +ONDA-104 PO; +PANT-31 PO
[2024-01-28 13:36] VITALS: BP 148/84; PULSE 85; RESP 18; TEMP 98
[2024-01-28] MEDS ORDERED: ISOS10TA16 PO (13:42)
[2024-01-28] MEDS ORDERED: AMLO-257 PO (13:42)
[2024-01-28] MEDS ORDERED: SIMV-261 PO (13:42)
[2024-01-28] MEDS ORDERED: LOSA-382 PO (13:42)
[2024-01-28 18:03] LABS: BASOPHILS % (AUTO) 0.4 % (0.0-2.0); EOSINOPHILS % (AUTO) 1.3 % (1.0-6.0); HEMATOCRIT 39.8 % (36-46); HEMOGLOBIN 13.2 g/dL (12.0-16.0); LYMPHOCYTES # (AUTO) 1.6 K/uL (1.0-4.8); LYMPHOCYTES % (AUTO) 24.5 % (22.0-44.0); MEAN CORPUSCULAR HGB CONC 33.3 G/dL (31.0-37.0); MEAN CORPUSCULAR VOLUME 90 fL (80-100); MONOCYTES # (AUTO) 0.5 K/uL (0.1-1.0); MONOCYTES % (AUTO) 7.9 % (2.0-9.0); NEUTROPHILS # (AUTO) 4.2 K/uL (1.8-7.7); NEUTROPHILS % (AUTO) 65.9 % (40.0-70.0); PLATELET COUNT (AUTO) 229 K/uL (150-450); RED BLOOD CELL COUNT(AUTO) 4.41 MIL/uL (4.00-5.20); RED CELL DISTRIBUTION WIDTH 13.4 % (11.5-14.5); WHITE BLOOD COUNT (AUTO) 6.4 K/uL (4.5-11.0)
[2024-01-28 18:04] LABS: ANION GAP 4 mmol/L (8-16); CALCIUM, TOTAL 9.7 mg/dL (8.8-10.5); CARBON DIOXIDE 30 mmol/L (22-29); CHLORIDE 107 mmol/L (98-107); CREATININE 0.68 mg/dL (0.60-1.30); GLOMERULAR FILTR. RATE CALC > 60 mL/min (>60); GLUCOSE,RANDOM 108 mg/dL (70-110); POTASSIUM 3.9 mmol/L (3.5-5.1); SODIUM SERUM 141 mmol/L (136-145); UREA NITROGEN, BLOOD 15 mg/dL (7-18)
[2024-01-28 18:12] LABS: TROPONIN I-HIGH SENSITIVITY 10 ng/L (<51)
[2024-01-28 18:22] LABS: B-TYPE NATRIURETIC PEPTIDE 47 pg/mL (0-100)
[2024-01-28 18:29] LABS: CREATINE KINASE, TOTAL ONLY 101 U/L (26-192)
[2024-01-28] MEDS: ACETAMINOPHEN/CODEINE 300-30 MG TABLET PO ONE (19:48)
[2024-01-28] MEDS ORDERED: ACET-2080 PO (20:16)
== END 2024-01-28 22:00 | disposition home or self-care (01) ==
LOC: EMS 13:20
DX: S20.214A Contusion of middle front wall of thorax, initial encounter (principal); S40.012A Contusion of left shoulder, initial encounter; I10 Essential (primary) hypertension; Z88.5 Allergy status to narcotic agent; V89.2XXA Person injured in unspecified motor-vehicle accident, traffic, initial encounter; Y93.89 Activity, other specified; Y92.89 Other specified places as the place of occurrence of the external cause; Y99.8 Other external cause status
CPT/HCPCS: 70450; 71045; 72125; 80048; 82550; 83880; 84484; 85025; 93005; 99285; 36415-L1; 36415-TC

== ENCOUNTER 2024-11-18 01:26 | Inpatient (IN) | payer MEDICARE ==
[~2024-11-18] VITALS: Ht 160 cm; Wt 73.0 kg
[~2024-11-18 01:26] MED LIST changes: -ACET-2080 PO; +AMLO-257 PO; -ATOR40TA28 PO; -CHOL25TA4 PO; +ISOS10TA16 PO; -LEVO25TA9 PO; +LOSA-382 PO; -METF-1211 PO; -ONDA-104 PO; -PANT-31 PO; +SIMV-261 PO
[2024-11-18] MEDS ORDERED: 0.9% SODIUM CHLORIDE 10 ML SYRINGE IVP PRN (01:45)
[2024-11-18] MEDS: SODIUM CHLORIDE 0.9% 1,000 ML IV ONE ×2 (02:02→09:05)
[2024-11-18] MEDS: FAMOTIDINE 20 MG/2 ML VIAL IVP ONE (02:02)
[2024-11-18 02:04] LABS: BASOPHILS % (AUTO) 0.4 % (0.0-2.0); EOSINOPHILS % (AUTO) 0.7 % (1.0-6.0); LYMPHOCYTES # (AUTO) 1.5 K/uL (1.0-4.8); LYMPHOCYTES % (AUTO) 14.4 % (22.0-44.0); MEAN CORPUSCULAR HEMOGLOBIN 30.1 pg (26.0-34.0); MEAN CORPUSCULAR HGB CONC 33.4 G/dL (31.0-37.0); MEAN CORPUSCULAR VOLUME 90 fL (80-100); MONOCYTES # (AUTO) 0.6 K/uL (0.1-1.0); MONOCYTES % (AUTO) 5.6 % (2.0-9.0); NEUTROPHILS # (AUTO) 8.3 K/uL (1.8-7.7); NEUTROPHILS % (AUTO) 78.9 % (40.0-70.0); PLATELET COUNT (AUTO) 238 K/uL (150-450); RED BLOOD CELL COUNT(AUTO) 4.67 MIL/uL (4.00-5.20); WHITE BLOOD COUNT (AUTO) 10.6 K/uL (4.5-11.0)
[2024-11-18 02:14] LABS: ANION GAP 9 mmol/L (8-16); CALCIUM, TOTAL 10.1 mg/dL (8.8-10.5); CARBON DIOXIDE 26 mmol/L (22-29); CHLORIDE 104 mmol/L (98-107); CREATININE 0.83 mg/dL (0.60-1.30); GLOMERULAR FILTR. RATE CALC > 60 mL/min (>60); GLUCOSE,RANDOM 165 mg/dL (70-110); POTASSIUM 3.9 mmol/L (3.5-5.1); SODIUM SERUM 139 mmol/L (136-145); UREA NITROGEN, BLOOD 26 mg/dL (7-18)
[2024-11-18 02:16] LABS: PROTHROMBIN TIME 10.1 SEC (9.4-11.6)
[2024-11-18 02:19] LABS: ALBUMIN 3.5 g/dL (3.4-5.0); BILIRUBIN,DIRECT 0.1 mg/dL (0.00-0.20); BILIRUBIN,TOTAL 0.3 mg/dL (0.1-1.0); TOTAL PROTEIN, SERUM 7.6 g/dL (6.4-8.2)
[2024-11-18 02:21] LABS: LACTIC ACID 1.2 mmol/L (0.4-2.0)
[2024-11-18 02:24] LABS: LIPASE 27 U/L (16-77); TROPONIN I-HIGH SENSITIVITY 9 ng/L (<51)
[2024-11-18 02:27] LABS: B-TYPE NATRIURETIC PEPTIDE 25 pg/mL (0-100)
[2024-11-18] MEDS: DICYCLOMINE HCL 10 MG/ML 2 ML VIAL IM ONE (02:45)
[2024-11-18 04:15] LABS: C.DIFF GDH ANTIGEN, Stool Positive (Negative)
[2024-11-18 04:16] LABS: C.DIFF TOXINS A&B, Stool Negative (Negative)
[2024-11-18] MEDS: VANCOMYCIN HCL 125 MG/2.5 ML SOLUTION ORAL.SYG PO SCH (07:22)
[2024-11-18] MEDS: OxyCODONE HCL/ACETAMINOPHEN 5-325 MG TABLET PO ONE (07:22)
[2024-11-18] MEDS: FAMOTIDINE 20 MG TABLET PO SCH (09:05)
[2024-11-18] MEDS: AmLODIPine BESYLATE 5 MG TABLET PO SCH (09:05)
[2024-11-18 09:48] VITALS: BP 168/74; PULSE 88; RESP 18; TEMP 97.7; O2SAT 98
[2024-11-18] MEDS: ACETAMINOPHEN 325 MG TABLET PO PRN (13:26)
[2024-11-18] MEDS: ONDANSETRON HCL 4 MG/2 ML VIAL IVP PRN (13:26)
[2024-11-18] MEDS: HYDROmorphone HCL 2 MG/ML SYRINGE IVP PRN (17:53)
[2024-11-18 20:34] VITALS: BP 154/72; PULSE 89; RESP 20; TEMP 98.2; O2SAT 95
[2024-11-19 06:28] VITALS: BP 124/55; PULSE 76; RESP 18; TEMP 98.4; O2SAT 94
[2024-11-19 08:45] VITALS: BP 100/69; PULSE 60; RESP 20; TEMP 98.2; O2SAT 95
[2024-11-19 18:01] VITALS: BP 124/70; PULSE 70; RESP 18; TEMP 98.8; O2SAT 100
[2024-11-19 20:00] VITALS: BP 126/47; PULSE 79; RESP 18; TEMP 98.4; O2SAT 95
[2024-11-19 20:22] VITALS: BP 116/48; RESP 18; O2SAT 96
[2024-11-20 04:11] VITALS: BP 147/71; PULSE 92; RESP 18; TEMP 98.4; O2SAT 95
[2024-11-20 04:50] VITALS: BP 103/49; PULSE 74; RESP 18; TEMP 98.4; O2SAT 97
[2024-11-20 06:06] LABS: BASOPHILS % (AUTO) 0.3 % (0.0-2.0); EOSINOPHILS % (AUTO) 0.3 % (1.0-6.0); HEMOGLOBIN 11.9 g/dL (12.0-16.0); LYMPHOCYTES # (AUTO) 1.8 K/uL (1.0-4.8); LYMPHOCYTES % (AUTO) 17.2 % (22.0-44.0); MEAN CORPUSCULAR HEMOGLOBIN 29.6 pg (26.0-34.0); MEAN CORPUSCULAR HGB CONC 33.1 G/dL (31.0-37.0); MEAN CORPUSCULAR VOLUME 89 fL (80-100); MONOCYTES # (AUTO) 0.7 K/uL (0.1-1.0); MONOCYTES % (AUTO) 6.4 % (2.0-9.0); NEUTROPHILS # (AUTO) 7.7 K/uL (1.8-7.7); NEUTROPHILS % (AUTO) 75.8 % (40.0-70.0); PLATELET COUNT (AUTO) 221 K/uL (150-450); RED BLOOD CELL COUNT(AUTO) 4.03 MIL/uL (4.00-5.20); RED CELL DISTRIBUTION WIDTH 13.9 % (11.5-14.5); WHITE BLOOD COUNT (AUTO) 10.2 K/uL (4.5-11.0)
[2024-11-20 06:19] LABS: ANION GAP 6 mmol/L (8-16); CALCIUM, TOTAL 8.5 mg/dL (8.8-10.5); CARBON DIOXIDE 27 mmol/L (22-29); CHLORIDE 108 mmol/L (98-107); CREATININE 0.63 mg/dL (0.60-1.30); GLOMERULAR FILTR. RATE CALC > 60 mL/min (>60); GLUCOSE,RANDOM 140 mg/dL (70-110); POTASSIUM 3.3 mmol/L (3.5-5.1); SODIUM SERUM 141 mmol/L (136-145); UREA NITROGEN, BLOOD 13 mg/dL (7-18)
[2024-11-20 07:50] VITALS: BP 120/52; PULSE 68; RESP 18; TEMP 98.2; O2SAT 97
[2024-11-20] MEDS ORDERED: VANC125C12 PO (10:22)
[2024-11-20] MEDS: POTASSIUM CHLORIDE 20 MEQ ER TABLET PO ONE (11:32)
[2024-11-20 15:17] VITALS: BP 128/62; PULSE 78; RESP 18; TEMP 98.4; O2SAT 97
[2024-11-20] MEDS: INFLUENZA VIRUS VACCINE TVS (6MO+) 2024-25/PF 45 MCG/0.5 ML SYRINGE IM. ONE (16:05)
== END 2024-11-20 17:59 | disposition home or self-care (01) | DRG 373 ==
LOC: EMS 01:28 → EDH 06:20 → 6S 09:21 → 4E 11-19 16:29
PROVIDERS: ADMIT Internal Medicine; ATTEND Internal Medicine
DX: A04.72 Enterocolitis due to Clostridium difficile, not specified as recurrent (principal); E78.00 Pure hypercholesterolemia, unspecified; I11.9 Hypertensive heart disease without heart failure; E87.6 Hypokalemia; M10.9 Gout, unspecified; Z88.8 Allergy status to other drugs, medicaments and biological substances; Z88.5 Allergy status to narcotic agent; Z87.442 Personal history of urinary calculi; Z78.9 Other specified health status
CPT/HCPCS: 71045; 74176; 80048; 80076; 83605; 83690; 83880; 84145; 84484; 85025; 85610; 87040; 87324; 87449; 90686; 93005; 96361; 96372; 96374; 97162; 97166; 97530; 99285; G0378; J0500; J1171; J2405; J3490; J7030; 36415-L1; 36415-TC; G0008